=== PATIENT | female | born 1995 | race Caucasian/White ===

== ENCOUNTER 2016-10-16 17:33 | Emergency (ER) | payer SELFPAY ==
--- NOTE | 2016-10-16 17:53 | ER Document Report ---
ED Medical Screen (RME) - General Stated Complaint: TOOTHACHE Notes: 21 yo female c/o right upper dental pain x 1 month. pt has dental appointment in 2 weeks TRAVEL OUTSIDE OF THE [place] IN LAST 30 DAYS: No - Related Data Allergies/Adverse Reactions: No Known Allergies Allergy (Verified 11/26/14 01:23) Past Medical History - Social History Family history: Reviewed & Not Pertinent Pulmonary Medical History: Reports: Hx Asthma Past Surgical History: Reports: Hx Tonsillectomy - adnoidectomy - Immunizations Hx Diphtheria, Pertussis, Tetanus Vaccination: Yes Physical Exam - Vital signs Vitals: Temp Pulse Resp BP Pulse Ox 98.5 F 99 16 137/78 H 100 10/16/16 17:42 10/16/16 17:42 10/16/16 17:42 10/16/16 17:42 10/16/16 17:42 Course - Vital Signs Vital signs: Temp Pulse Resp BP Pulse Ox 98.5 F 99 16 137/78 H 100 10/16/16 17:42 10/16/16 17:42 10/16/16 17:42 10/16/16 17:42 10/16/16 17:42
--- NOTE | 2016-10-16 19:42 | ER Document Report ---
ED Oral Problem - General Chief Complaint: Toothache Stated Complaint: TOOTHACHE Notes: The patient is a 21-year-old female who presents with 1 month of right upper posterior tooth pain. She has not remembered injury. She has an appointment with the dentist in 2 weeks for removal. She has tried BC, Motrin and Orajel without much relief. Denies mouth swelling, fevers, difficulty swallowing, trismus or tongue elevation. TRAVEL OUTSIDE OF THE [place] IN LAST 30 DAYS: No - Related Data Allergies/Adverse Reactions: No Known Allergies Allergy (Verified 10/16/16 17:52) Past Medical History - General Information source: Patient - Social History Smoking Status: Current Every Day Smoker Chew tobacco use (# tins/day): No Frequency of alcohol use: None Drug Abuse: None Family History: Reviewed & Not Pertinent Patient has suicidal ideation: No Patient has homicidal ideation: No Pulmonary Medical History: Reports: Hx Asthma Renal/ Medical History: Denies: Hx Peritoneal Dialysis Past Surgical History: Reports: Hx Tonsillectomy - adnoidectomy - Immunizations Hx Diphtheria, Pertussis, Tetanus Vaccination: Yes Review of Systems - Review of Systems Notes: REVIEW OF SYSTEMS: CONSTITUTIONAL: -fevers, -chills EENT: -eye pain, -difficulty swallowing, -nasal congestion, +dental pain CARDIOVASCULAR:-chest pain, -syncope. RESPIRATORY: -cough, -SOB GASTROINTESTINAL: -abdominal pain, - nausea, -vomiting, -diarrhea GENITOURINARY: -dysuria, -hematuria MUSCULOSKELETAL: -back pain, -neck pain SKIN: -rash or skin lesions. HEMATOLOGIC: -easy bruising or bleeding. LYMPHATIC: -swollen, enlarged glands. NEUROLOGICAL: -altered mental status or loss of consciousness, -headache, - neurologic symptoms PSYCHIATRIC: -anxiety, -depression. ALL OTHER SYSTEMS REVIEWED AND NEGATIVE. Physical Exam - Vital signs Vitals: Temp Pulse Resp BP Pulse Ox 98.5 F 99 16 137/78 H 100 10/16/16 17:42 10/16/16 17:42 10/16/16 17:42 10/16/16 17:42 10/16/16 17:42 - Notes Notes: PHYSICAL EXAMINATION: GENERAL: Well-appearing, well-nourished and in no acute distress. HEAD: Atraumatic, normocephalic. EYES: Pupils equal round and reactive to light, extraocular movements intact, sclera anicteric, conjunctiva are normal. ENT: nares patent, oropharynx clear without exudates. Moist mucous membranes. Tender right posterior upper molar, no surrounding abscess and no facial abscess. No trismus or brawny tongue. NECK: Normal range of motion, supple without lymphadenopathy LUNGS: Breath sounds clear to auscultation bilaterally and equal. No wheezes rales or rhonchi. HEART: Regular rate and rhythm without murmurs ABDOMEN: Soft, nontender, normoactive bowel sounds. No guarding, no rebound. No masses appreciated. EXTREMITIES: Normal range of motion, no pitting or edema. No cyanosis. NEUROLOGICAL: Cranial nerves grossly intact. Normal speech, normal gait. Normal sensory, motor, and reflex exams. PSYCH: Normal mood, normal affect. SKIN: Warm, Dry, normal turgor, no rashes or lesions noted. Course - Re-evaluation Re-evalutation: No evidence of abscess or Terrell angina. Will provide a brief course of Tylenol #3 and follow-up at dentist. Told her to call around to see if any dentists have earlier appointment. - Vital Signs Vital signs: Temp Pulse Resp BP Pulse Ox 98.5 F 99 16 137/78 H 100 10/16/16 17:42 10/16/16 17:42 10/16/16 17:42 10/16/16 17:42 10/16/16 17:42 Discharge - Discharge Clinical Impression: Pain, dental Condition: Good Disposition: HOME, SELF-CARE Additional Instructions: TOOTHACHE: Your pain is due to dental decay. The tooth must be repaired in order for you to feel better. You will, therefore, be referred to a dentist. We do not have dentists on the staff at [facility]. Severe swelling or drainage around a tooth usually means a dental abscess. This also requires evaluation and treatment by the dentist, but antibiotics may be prescribed while awaiting dental treatment. You should be rechecked immediately if you develop major swelling of the face, increasing pain, a lump in the jaw or gums, headache, difficulty swallowing, or fever. ORAL NARCOTIC MEDICATION: You have been given a prescription for pain control. This medication is a narcotic. It's best taken with food, as nausea can result if taken on an empty stomach. Don't operate machinery or drive within six hours of taking this medication. Do not combine this medicine with alcohol, or with any medication which can cause sedation (such as cold tablets or sleeping pills) unless you get permission from the physician. Narcotics tend to cause constipation. If possible, drink plenty of fluids and eat a diet high in fiber and fruits. Please be aware that prescription narcotics also have the potential for abuse. People become addicted to these medications because of the general sense of wellbeing that they induce. This feeling along with a significant reduction in tension, anxiety, and aggression provides a stimulating seductive quality to these drugs. Once your pain is under control, we encourage you to discard your unused narcotics. PENICILLIN V K: You have been given a prescription for Penicillin VK. Your physician has determined that this is the best antibiotic for your condition. Pen VK can be taken with meals, however more of the antibiotic gets into the bloodstream if it's taken on an empty stomach. Penicillin usually has no side effects. However, allergy to penicillins is common. If you have had an allergic reaction to any drug of the penicillin family, you should never take any other penicillin. Notify your doctor at once if you develop hives, itching, swelling, faintness, or shortness of breath. FOLLOW-UP CARE: You have been referred for follow-up care to the dentists listed below. Call the dentists office for an appointment as you were instructed or within the next two days. If you experience worsening or a significant change in your symptoms, notify the physician immediately or return to the Emergency Department at any time for re-evaluation. [facility] [address] [place], [place] Friday mornings, by appointment [facility] [address] [place] [address] [facility] [address] [facility] [address] [facility] [address] [facility]. [employer] [facility] [address] [facility]. [email or web address] [address] [place] [address] Friday- 8:00am to 5:00 pm Will see patients from other [facility]. Charges based on income and family size and accepts Medicare, Medicaid, and Insurances Will pull molars [facility] [place]. [id number] Hours of Operation 8:00 am - 4:30 pm weekdays The following dental offices accept Medicaid: [facility] Dr. Rosario Dr. Rivera Dr. Blackmon Dr. De La Cruz Brooks Bojorquez, Art, and Taj oral surgery Dr. Klein ([place]) Dr. Smith ([place]) [facility] Drs. Cox ([place]) Dr. Cruz ([place]) [facility] Dr. Valles ([place]) Drs. Knutson and ([place]) Medicaid Care Line Prescriptions: Acetaminophen with Codeine [Tylenol #3 Tablet] 1 each PO Q4HP PRN #10 tablet PRN Reason: Penicillin V Potassium [Penicillin Vk 500 mg Tablet] 500 mg PO Q8H #21 tablet Forms: Elevated Blood Pressure
[2016-10-16 20:35] VITALS: BP 141/74
== END 2016-10-16 20:11 | disposition home or self-care (01) ==
LOC: ER 17:33
DX: K08.9 Disorder of teeth and supporting structures, unspecified (principal); F17.200 Nicotine dependence, unspecified, uncomplicated
CPT/HCPCS: 99282

== ENCOUNTER 2018-02-06 17:48 | Emergency (ER) | payer MEDICAID ==
[2018-02-06 18:00] VITALS: BP 145/80
--- NOTE | 2018-02-06 18:04 | ER Document Report ---
HPI - HPI Pain Level: 2 Context: Patient is a 22-year-old female presents emergency room with a chief complaint of suprapubic pain. Patient states that in the past 7 days she has noticed vaginal discharge and urinary frequency and then admits to pelvic cramping with intermittent sharp pain over the past 2 days. Patient states that she feels it is worse just right of midline but she feels it throughout the entire suprapubic area. She denies any associated fevers or chills, pyuria , hematuria. Patient states that she took 2 tests at home and one positive, and one negative. States her last menstrual period was at the end of November. Patient states she is sexually active with one partner. - REPRODUCTIVE Reproductive: DENIES: : Past Medical History - Social History Smoking Status: Current Every Day Smoker Family History: Reviewed & Not Pertinent Pulmonary Medical History: Reports: Hx Asthma Renal/ Medical History: Denies: Hx Peritoneal Dialysis Past Surgical History: Reports: Hx Tonsillectomy - adnoidectomy - Immunizations Hx Diphtheria, Pertussis, Tetanus Vaccination: Yes Vertical Provider Document - CONSTITUTIONAL Agree With Documented VS: Yes Notes: PHYSICAL EXAM GENERAL: Alert, interacts well. ABDOMEN: Soft, nondistended, nontender. No guarding, rebound, or rigidity.. Bowel sounds present in all 4 quadrants. FEMALE : Normal external exam. No evidence of lesions, lacerations, bruising or vesicles. Speculum exam normal cervix closed. No evidence of vaginal discharge with odor. moderate yellow/white discharge No evidence of lesions. No vaginal bleeding. Bimanual exam normal no cervical motion tenderness. No adnexal mass or adnexal tenderness. EXTREMITIES: Moves all 4 extremities spontaneously. No edema, radial and dorsalis pedis pulses 2/4 bilaterally. No cyanosis. NEUROLOGICAL: Alert and oriented x4. Normal speech. PSYCH: Normal affect, normal mood. SKIN: Warm, dry, normal turgor. No rashes or lesions noted. - INFECTION CONTROL TRAVEL OUTSIDE OF THE [place] IN LAST 30 DAYS: No Course - Re-evaluation Re-evalutation: 02/06/18 19:12 Patient is a 22-year-old female is hemodynamically stable, no acute distress afebrile. Wet mount does show evidence of trichomonas. Patient's beta-hCG was negative. Treat for chlamydia and gonorrhea as well trichomonas. Discussed with patient states sex practices and to have her partners tested and treated. Otherwise patient's physical exam benign for any concerns for acute appendicitis , obstruction. Patient will be discharged home with strict return precautions. - Vital Signs Vital signs: Temp Pulse Resp BP Pulse Ox 99.3 F 80 16 145/80 H 99 02/06/18 17:59 02/06/18 17:59 02/06/18 17:59 02/06/18 17:59 02/06/18 17:59 Discharge - Discharge Clinical Impression: Trichomoniasis of vagina Condition: Good Disposition: HOME, SELF-CARE Instructions: Trichomonas Infection ([facility]) Additional Instructions: You were treated for trichomonas today as well as chlamydia and gonorrhea. You will be called if your results are positive. Please abstain from sexual intercourse for the next 7 days and have your partners tested and treated. Please be sure to use a condom in the future with new partners. Referrals: [facility] [Provider Group] - Follow up in 3-5 days
[2018-02-06 18:32] LABS: BACTERIA (WET MOUNT) 4+ BACTERIA SEEN; RBCS (WET MOUNT) NO RBCS SEEN; T.VAGINALIS (WET MOUNT) TRICHOMONAS SEEN; WBCS (WET MOUNT) 1+ WBCS SEEN; YEAST (WET MOUNT) NO YEAST SEEN
[2018-02-06 19:05] LABS: AMORPHOUS SEDIMENT,URINE TRACE /HPF; APPEARANCE,URINE CLOUDY; BILIRUBIN,URINE NEGATIVE (NEGATIVE); COLOR,URINE YELLOW; GLUCOSE, URINE NEGATIVE (NEGATIVE); KETONES,URINE NEGATIVE (NEGATIVE); LEUKOCYTE ESTERASE,URINE LARGE (NEGATIVE); NITRITE,URINE NEGATIVE (NEGATIVE); PROTEIN,URINE 30 mg/dL (NEGATIVE); URINE SPECIFIC GRAVITY 1.021; UROBILINOGEN,URINE NEGATIVE mg/dL (<2.0)
[2018-02-06] MEDS ORDERED: METRONIDAZOLE 500 MG TABLET PO ONE (19:10)
[2018-02-06] MEDS ORDERED: AZITHROMYCIN 250 MG TABLET PO ONE (19:11)
[2018-02-06] MEDS ORDERED: ONDANSETRON 4 MG TAB.RAPDIS PO ONE (19:11)
[2018-02-06] MEDS ORDERED: LIDOCAINE 1% INJ-PF (10 MG/ML) 30 ML SDV INJ ONE (19:11)
[2018-02-06] MEDS ORDERED: CEFTRIAXONE INJ 250 MG VIAL IM ONE (19:11)
[2018-02-06 20:03] LABS: CHLAM PCR NOT DETECTED (NOT DETECT); GON PCR NOT DETECTED (NOT DETECT)
== END 2018-02-06 19:30 | disposition home or self-care (01) ==
LOC: ER 17:48
DX: R10.2 Pelvic and perineal pain (principal); A59.01 Trichomonal vulvovaginitis; Z32.02 Encounter for pregnancy test, result negative; F17.200 Nicotine dependence, unspecified, uncomplicated
CPT/HCPCS: 99283; 96372; 87086; 87210; 81025; 87088; 81001; 87186; 87491; 87591; Q0144; S0119; J3490 ×2; J0696